=== PATIENT | female | born 1950 | race Caucasian/White ===

== ENCOUNTER → 2016-07-21 | Outpatient (CLI) | payer MEDICARE, BC, OTHER ==
[~2016-07-21] MED LIST: CALCTAB29 PO; GLIP5TAB15 PO; LOSA100T36 PO; METF500T PO; WOMETAB2 PO
[2016-07-21 07:19] LABS: ANION GAP 10 MEQ/L (8-16); BLOOD UREA NITROGEN 16 MG/DL (7-18); CALCIUM LEVEL 8.4 MG/DL (8.8-10.2); CARBON DIOXIDE LEVEL 25 MEQ/L (21-32); CHLORIDE LEVEL 105 MEQ/L (98-107); CREATININE FOR GFR 0.69 MG/DL (0.55-1.02); GLOMERULAR FILTRATION RATE > 60.0 (>45); GLUCOSE, FASTING 218 MG/DL (80-110); POTASSIUM SERUM 3.9 MEQ/L (3.5-5.1); SODIUM LEVEL 140 MEQ/L (136-145)
--- NOTE | 2016-07-21 13:41 | ECGEPIP ---
Stationary ECG Study [facility] Test Date: 2016-07-21 Pat Name: ALDEN GORMAN Department: Room: - Gender: F Restaurant Assistant: KALEY : 1950 Requested By: Ryan Velázquez Order Number: [id number] Reading MD: Simon Jeter Measurements Intervals [place] Rate: 90 P: 61 AR: 155 QRS: 6 QRSD: 98 T: 19 QT: 366 QTc: 450 Interpretive Statements Normal sinus rhythm Slow precordial R-wave progression; body habitus versus pulmonary disease. Rule out prior septal injury. No change from 12/03/15. Electronically Signed On 07-21-2016 13:40:43 EDT by Simon Jeter
== END ==
LOC: M LAB 06:03
PROVIDERS: ATTEND Ophthalmology
DX: I10 Essential (primary) hypertension (principal)

== ENCOUNTER → 2016-08-04 | Day surgery (SDC) | payer MEDICARE, BC, OTHER ==
--- NOTE | 2016-08-03 08:19 | HPE ---
DATE OF ADMISSION: 08/04/2069 ROOM: Operating room. HISTORY AND CHIEF COMPLAINT: Mrs. Muñoz is a 66-year-old lady who has had a long history of deposits of cholesterol in the medial upper eyelids and medial lower eyelids of both eyes. They have progressively gotten worse over the years. She is being admitted to have the xanthelasma excised from the medial, upper and lower eyelid of both eyes with reconstruction of the defects. PAST OCULAR HISTORY: Please see history of present illness, previous excision of basal cell carcinoma of right lower eyelid, blepharitis both eyes. Fuchs corneal endothelial dystrophy both eyes, hypertensive retinopathy both eyes, dry syndrome both eyes. PAST MEDICAL HISTORY: For preoperative medical evaluation and assessment please see the report by Dr. José Lloyd. Diabetes mellitus type 2, hypertension, hyperlipidemia. MEDICATIONS: Please see refer to the report by Dr. José Lloyd. - Prevnar - losartan - Glucotrol XL - metformin - multiple vitamins - calcium ALLERGIES: Please refer to the report by Dr. José Lloyd. MORPHINE, BENTYL. FAMILY HISTORY: Negative with respect to eye disease. SOCIAL HISTORY: Previous smoker, quit 1978. PHYSICAL EXAMINATION: On examination: Vision with current glasses: Right eye: 2024. Left eye: 2024. Intraocular pressure by Goldmann tonometry: Both eyes: 16 mmHg. Extraocular eye movements: Both eyes: Full. External examination: Right eye: Xanthelasma medial upper eyelid measuring 8 x 15 mm in size, medial right lower eyelid measuring 3 x 2 mm in size. Margin to brow skin measurement 27 mm. Left eye: Xanthelasma medial upper eyelid measuring 7 x 15 mm in size, xanthelasma medial left lower eyelid measuring 6 x 10 mm in size. Margin to brow skin measurement 29 mm. Slit lamp examination: Cornea: Both eyes: 1+ superficial punctate keratitis, Fuchs endothelial dystrophy. Anterior chamber: Both eyes: Normal. Iris: Both eyes: Normal. Lens: Both eyes: Normal. IMPRESSION 1. Xanthelasma upper eyelids and lower eyelids both eyes, increasing in size and causing irritation and heaviness of the eyelids. PLAN: I discussed the findings with Mrs. Muñoz. I recommended excision of the xanthelasma with reconstruction of the defect of both upper and lower eyelids of both eyes. I discussed with her the procedure, benefits, expected outcomes, risks and alternatives to the surgery. I mentioned that the risk of surgery includes but is not limited to surgery is not guaranteed, bleeding, infection, inflammation, scarring, lid malposition, recurrence, injury to the globe, orbit or lower eyelids, interfering with his vision and the extraocular movements of the eyes. Mrs. Muñoz elected to have the said surgery performed. I obtained an informed consent. I advised her to stop any aspirin type products and nonsteroidal anti-inflammatory medications [address] Lloyd will recommend any other preoperative and postoperative medications. DIMAS
[~2016-08-04] VITALS: Ht 162.6 cm; Wt 77.1 kg
[~2016-08-04] MED LIST changes: +ACETAMINOPHEN TAB 650MG DOSE (2X325MG) PO PRN; +BUPIVACAINE 0.75% 10 ML VIAL As Ordered ONE; +CIPROFLOXACIN 0.3% OPHTH OINTMENT As Ordered ONE; +HYALURONIDASE 200 UNITS/ML VIAL (J3470) As Ordered ONE; +LIDOCAINE 2% INJ 100 MG/5 ML SDV (FOR ANES.) As Ordered ONE; +LIDOCAINE W/EPINEPHRINE 1% 20ML VIAL As Ordered ONE; +LR 1,000 ML IV ONE; +LR 1,000 ML IV SCH; +MIDAZOLAM INJ 2 MG/2 ML VIAL (J2250) As Ordered ONE; +ONDANSETRON 4MG/2ML VIAL (J2405) As Ordered ONE; +POVIDONE-IODINE 5% OPHTH PREP SOL 30ML As Ordered ONE; +PROPOFOL 200 MG/20 ML VIAL As Ordered ONE; +SODIUM BICARBONATE 4.2% INJ 10 ML SYRINGE As Ordered ONE; +TOBRADEX OPHTH OINT 3.5 GM As Ordered ONE; +dexameTHASONE 4 MG/ML 1ML VIAL (J1100) As Ordered ONE; +dexameTHASONE 4 MG/ML 1ML VIAL (J1100) IV ONE; +fentaNYL 100 MCG/2 ML INJECTION (J3010) As Ordered ONE
[2016-08-04 09:35] VITALS: BP 145/71
--- NOTE | 2016-08-04 11:52 | RO ---
DATE OF SURGERY: 08/04/2016 ROOM: Operating room. 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 POSTOPERATIVE DIAGNOSIS: Xanthelasma of both upper and lower eyelids, both eyes. OPERATIVE PROCEDURE 1. Excision of xanthelasma of both upper and lower eyelids, both eyes. 2. Reconstruction of the both upper eyelids' defects using a rhombic flap and two-layer closure intimated wound for the lesions on the both lower eyelids. ANESTHESIA: Local anesthetic with monitored sedation. SURGEON: Ryan Velázquez MD STATISTICIAN APPLIED: DESCRIPTION OF PROCEDURE: Operative procedure details: The patient was brought into the operating room and positioned appropriately. A surgical marking pen was used to camilo incision lines around the xanthelasma lesions of all four eyelids, a rhombic flap was drawn consisting of two arms 60 degrees apart with the apex being horizontal and the base being horizontal with each arm measuring 8 mm in length for the right upper eyelid. For the left upper eyelid the rhombic flap was drawn consisting of two arms of rhombus 60 degrees apart with each arm measuring 8 mm with the apex being horizontal and the base being horizontal. After adequate sedation, local anesthetic consisting of Xylocaine 1% mixed 50/50 with Marcaine 0.75% with epinephrine and 200 units of Vitrase with 10 mL of local anesthetic, 2.75 mL was injected subcutaneously at the base of the xanthelasma lesions of the upper and lower eyelids of both eyes. The full face was prepped with Betadine and draped in the usual sterile manner. The skin incision was made with a #15 blade. Hemostasis was ensured throughout the procedure using bipolar cautery. Sharp and blunt dissection was performed to remove the xanthelasma lesions. The lesion size of the right lower eyelid consisted of 3 x 2 mm in size and the left lower eyelid 6 x 10 mm in size. The lesion of the right upper eyelid was 8 x 15 mm in size and the left upper eyelid 7 x 15 mm in size. Blunt dissection was performed at subcutaneous layer of the lower eyelids. The orbicularis layer was closed using inverted interrupted 6-0 Vicryl suture, and the skin was closed using interrupted 6-0 nylon suture. The rhombic flap was fashioned, both for the right upper eyelid and the left upper eyelid. The rhombic flap was sewn into place using inverted interrupted 6-0 Vicryl suture for the orbicularis layer, and the skin incisions were closed using interrupted 6-0 nylon suture. There were no complications during the surgery. A combination of TobraDex ophthalmic ointment mixed with Ciloxan ophthalmic ointment was applied to the incision and the sutures. A cold saline compress was placed over both eyes. The patient left the recovery room in good condition. Specimens were sent to pathology. [facility]AFFEE HOSPITALVannessa
== END | disposition home or self-care (01) ==
LOC: M SDC 05:51
PROVIDERS: ATTEND Ophthalmology
DX: H02.65 Xanthelasma of left lower eyelid (principal); H02.64 Xanthelasma of left upper eyelid; H02.62 Xanthelasma of right lower eyelid; H02.61 Xanthelasma of right upper eyelid; H01.003 Unspecified blepharitis right eye, unspecified eyelid; H01.006 Unspecified blepharitis left eye, unspecified eyelid; H18.51 Endothelial corneal dystrophy; H35.033 Hypertensive retinopathy, bilateral; H04.123 Dry eye syndrome of bilateral lacrimal glands; E11.9 Type 2 diabetes mellitus without complications; I10 Essential (primary) hypertension; E78.5 Hyperlipidemia, unspecified; Z79.899 Other long term (current) drug therapy; Z79.84 Long term (current) use of oral hypoglycemic drugs; Z88.5 Allergy status to narcotic agent; Z88.8 Allergy status to other drugs, medicaments and biological substances; Z87.891 Personal history of nicotine dependence
CPT/HCPCS: 11441; 12051; 67961; 88302; J1100; J2250; J2405; J3010; J3470

== ENCOUNTER → 2016-12-01 | Outpatient (CLI) | payer MEDICARE, BC, OTHER ==
[~2016-12-01] MED LIST changes: -ACETAMINOPHEN TAB 650MG DOSE (2X325MG) PO PRN; -BUPIVACAINE 0.75% 10 ML VIAL As Ordered ONE; -CIPROFLOXACIN 0.3% OPHTH OINTMENT As Ordered ONE; +GLIP1TAB49 PO; -GLIP5TAB15 PO; -HYALURONIDASE 200 UNITS/ML VIAL (J3470) As Ordered ONE; -LIDOCAINE 2% INJ 100 MG/5 ML SDV (FOR ANES.) As Ordered ONE; -LIDOCAINE W/EPINEPHRINE 1% 20ML VIAL As Ordered ONE; -LR 1,000 ML IV ONE; -LR 1,000 ML IV SCH; -METF500T PO; +METF500T13 PO; -MIDAZOLAM INJ 2 MG/2 ML VIAL (J2250) As Ordered ONE; -ONDANSETRON 4MG/2ML VIAL (J2405) As Ordered ONE; -POVIDONE-IODINE 5% OPHTH PREP SOL 30ML As Ordered ONE; -PROPOFOL 200 MG/20 ML VIAL As Ordered ONE; -SODIUM BICARBONATE 4.2% INJ 10 ML SYRINGE As Ordered ONE; -TOBRADEX OPHTH OINT 3.5 GM As Ordered ONE; -dexameTHASONE 4 MG/ML 1ML VIAL (J1100) As Ordered ONE; -dexameTHASONE 4 MG/ML 1ML VIAL (J1100) IV ONE; -fentaNYL 100 MCG/2 ML INJECTION (J3010) As Ordered ONE
--- NOTE | 2016-12-01 09:44 | REPMRS ---
Patient History The patient states she had a clinical breast exam in March 2016.Patient has history of breast cancer at age 54. Family history of breast cancer in sister at age 40. Digital Mammo Screening Bilat: December 01, 2016 - Exam #: [id number] Bilateral CC and MLO view(s) were taken. Technologist: Zayda Escamilla Technologist Prior study comparison: November 29, 2015, left breast digital mammo diagnostic unilateral performed at [facility]. November 22, 2015, bilateral digital mammo screening bilat performed at [facility]. November 20, 2014, bilateral digital mammo screening bilat performed at [facility]. FINDINGS: There are scattered fibroglandular densities. There has been no change in the appearance of the mammogram from the prior studies. There is a mild amount of scattered fibroglandular density which is fairly symmetric. There is no interval development of dominant mass, architectural distortion, or clustered microcalcification suggestive of malignancy. ASSESSMENT: BI-RADS/ACR category 1 mammogram. Negative. Recommendation Routine screening mammogram in 1 year (for women over age 40). This mammogram was interpreted with the aid of an FDA-approved computer-aided dectection system. Electronically Signed By: Jonnathan Patel MD 12/01/16 0951
== END ==
LOC: M RAD 08:32
PROVIDERS: ATTEND Obstetrics & Gynecology
DX: Z12.31 Encounter for screening mammogram for malignant neoplasm of breast (principal); Z80.3 Family history of malignant neoplasm of breast; Z85.3 Personal history of malignant neoplasm of breast

== ENCOUNTER 2018-11-04 05:42 | Emergency (ER) | payer MEDICARE, BC, OTHER ==
[~2018-11-04] VITALS: Ht 162.6 cm; Wt 75.9 kg
[2018-11-04 05:42] VITALS: BP 185/83
[~2018-11-04 05:42] MED LIST changes: -GLIP1TAB49 PO; +GLIP5TAB20 PO; -LOSA100T36 PO; +LOSA100T50 PO
[2018-11-04] MEDS ORDERED: CYCL5TAB PO (06:21)
[2018-11-04] MEDS ORDERED: NAPR-837 PO (06:21)
== END 2018-11-04 06:47 | disposition home or self-care (01) ==
LOC: M ED 05:42
DX: M62.830 Muscle spasm of back (principal); Z88.5 Allergy status to narcotic agent; Z88.8 Allergy status to other drugs, medicaments and biological substances; Z79.84 Long term (current) use of oral hypoglycemic drugs; Z79.899 Other long term (current) drug therapy

== ENCOUNTER → 2020-01-05 | Outpatient (CLI) | payer MEDICARE, BC, OTHER ==
[~2020-01-05] MED LIST changes: +CYCL5TAB PO; +NAPR-837 PO
[2020-01-05 08:15] LABS: ALBUMIN 3.6 GM/DL (3.2-5.2); ALT/SGPT 23 U/L (12-78); BILIRUBIN,TOTAL 0.6 MG/DL (0.2-1.0); BLOOD UREA NITROGEN 15 MG/DL (7-18); CARBON DIOXIDE LEVEL 28 MEQ/L (21-32); CHLORIDE LEVEL 105 MEQ/L (98-107); CHOLESTEROL LEVEL 107 MG/DL (<200); CHOLESTEROL RISK RATIO 3.242 (<5); CREATININE FOR GFR 0.65 MG/DL (0.55-1.30); GLOMERULAR FILTRATION RATE > 60.0 (>45); GLUCOSE, FASTING 154 MG/DL (70-100); HDL CHOLESTEROL 33 MG/DL (>40); LDL CHOLESTEROL 50 MG/DL (<100); NON-HDL-C 74 MG/DL; POTASSIUM SERUM 4.3 MEQ/L (3.5-5.1); SODIUM LEVEL 140 MEQ/L (136-145); TOTAL PROTEIN 6.5 GM/DL (6.4-8.2); TRIGLYCERIDES LEVEL 118 MG/DL (<150)
[2020-01-05 08:21] LABS: CREATININE, URINE 74.4 MG/DL; MALB URINE SIEMENS 26.4 MG/L; MAU/CREAT RATIO 35.4 MCG/MG (0.0-30.0)
[2020-01-05 10:09] LABS: HEMOGLOBIN A1c 6.5 %
== END ==
LOC: M LAB 06:05
PROVIDERS: ATTEND Internal Medicine
DX: E78.5 Hyperlipidemia, unspecified (principal); E11.9 Type 2 diabetes mellitus without complications; I10 Essential (primary) hypertension

== ENCOUNTER → 2020-07-04 | Outpatient (REF) | payer MEDICARE, OTHER, BC | LOC: M LAB REF 16:16 | PROVIDERS: ATTEND Dermatology | DX: L08.9 Local infection of the skin and subcutaneous tissue, unspecified (principal) | CPT/HCPCS: 87070; 87077; 87205; G0463 ==

== ENCOUNTER → 2021-01-15 | Outpatient (REF) | payer MEDICARE, OTHER | LOC: M LAB REF 13:44 | PROVIDERS: ATTEND Dermatology | DX: T14.90XD Injury, unspecified, subsequent encounter (principal) ==

== ENCOUNTER → 2021-11-13 | Outpatient (REF) | payer MEDICARE, OTHER ==
[~2021-11-13] MED LIST changes: +LOSA100T45 PO; -LOSA100T50 PO
== END ==
LOC: M SFHCDERM 17:28
PROVIDERS: ATTEND Dermatology
DX: L60.0 Ingrowing nail (principal)

== ENCOUNTER → 2022-01-27 | Outpatient (CLI) | payer MEDICARE, BC, OTHER ==
[2022-01-27 07:31] LABS: ALBUMIN 3.8 G/DL (3.2-5.2); ALT/SGPT 23 U/L (7.0-40); BILIRUBIN,TOTAL 0.6 MG/DL (0.3-1.2); BLOOD UREA NITROGEN 14 MG/DL (9-23); CALCIUM LEVEL 9.2 MG/DL (8.3-10.6); CARBON DIOXIDE LEVEL 27 MMOL/L (20-31); CHLORIDE LEVEL 102 MMOL/L (98-107); CHOLESTEROL LEVEL 94 MG/DL (<200); CREATININE FOR GFR 0.52 MG/DL (0.55-1.30); GLOMERULAR FILTRATION RATE > 60.0 (>39); GLUCOSE, FASTING 198 MG/DL (74-106); HDL CHOLESTEROL 24.7 MG/DL (>40); LDL CHOLESTEROL 36.7 MG/DL (<100); NON-HDL-C 69 MG/DL; POTASSIUM SERUM 4.2 MMOL/L (3.5-5.1); SODIUM LEVEL 140 MMOL/L (136-145); TOTAL PROTEIN 6.3 G/DL (5.7-8.2); TRIGLYCERIDES LEVEL 163 MG/DL (<150)
[2022-01-27 07:36] LABS: HEMOGLOBIN A1c 7.5 % (4.0-6.0)
== END ==
LOC: M LAB 06:00
PROVIDERS: ATTEND Internal Medicine
DX: E11.9 Type 2 diabetes mellitus without complications (principal); E78.5 Hyperlipidemia, unspecified; I10 Essential (primary) hypertension

== ENCOUNTER → 2022-04-14 | Outpatient (REF) | payer MEDICARE, OTHER | LOC: M PLALAB 09:11 | PROVIDERS: ATTEND Nurse Practitioner Family | DX: Z12.4 Encounter for screening for malignant neoplasm of cervix (principal) | CPT/HCPCS: 87624; G0123 ==

== ENCOUNTER → 2022-04-23 | Outpatient (CLI) | payer MEDICARE, OTHER, BC ==
[2022-04-23 06:42] LABS: BASO % 0.5 % (0.0-1.0); EOS # 0.2 10^3/uL (0.0-0.5); EOS % 1.9 % (0.0-3.0); HEMATOCRIT 45.4 % (36.0-47.0); HEMOGLOBIN 15.2 g/dl (12.0-15.5); LYMPH # 1.9 10^3/uL (1.5-5.0); LYMPH % 23.9 % (24.0-44.0); MEAN CORPUSCULAR HEMOGLOBIN 30.4 pg (27.0-33.0); MEAN CORPUSCULAR HGB CONC 33.5 g/dl (32.0-36.5); MEAN CORPUSCULAR VOLUME 90.8 fl (80.0-96.0); MONO # 1.4 10^3/uL (0.0-0.8); MONO % 18.2 % (2.0-8.0); NEUTROPHILS # 4.3 10^3/uL (1.5-8.5); NEUTROPHILS % 54.9 % (36.0-66.0); PLATELET COUNT, AUTOMATED 238 10^3/uL (150-450); WHITE BLOOD COUNT 7.9 10^3/uL (4.0-10.0)
[2022-04-23 06:57] LABS: ALBUMIN 3.7 G/DL (3.2-5.2); ALKALINE PHOSPHATASE 78 U/L (46-116); ALT/SGPT 23 U/L (7.0-40); AST/SGOT 16 U/L (<34); BILIRUBIN,TOTAL 0.6 MG/DL (0.3-1.2); BLOOD UREA NITROGEN 13 MG/DL (9-23); CALCIUM LEVEL 9.1 MG/DL (8.3-10.6); CARBON DIOXIDE LEVEL 29 MMOL/L (20-31); CHLORIDE LEVEL 107 MMOL/L (98-107); CHOLESTEROL LEVEL 92 MG/DL (<200); CHOLESTEROL RISK RATIO 3.81 (<5); CREATININE FOR GFR 0.55 MG/DL (0.55-1.30); GLOMERULAR FILTRATION RATE > 60.0 (>39); GLUCOSE, FASTING 177 MG/DL (74-106); HDL CHOLESTEROL 24.1 MG/DL (>40); LDL CHOLESTEROL 45.1 MG/DL (<100); NON-HDL-C 68 MG/DL; POTASSIUM SERUM 4.2 MMOL/L (3.5-5.1); SODIUM LEVEL 143 MMOL/L (136-145); TOTAL PROTEIN 6.3 G/DL (5.7-8.2); TRIGLYCERIDES LEVEL 114 MG/DL (<150)
[2022-04-23 08:56] LABS: HEMOGLOBIN A1c 7.2 % (4.0-6.0)
== END ==
LOC: M LAB 06:13
PROVIDERS: ATTEND Internal Medicine
DX: E11.9 Type 2 diabetes mellitus without complications (principal)

== ENCOUNTER → 2022-05-08 | Outpatient (REF) | payer MEDICARE, OTHER, BC | LOC: M SFHCDERM 14:34 | PROVIDERS: ATTEND Physician Assistant | DX: D22.5 Melanocytic nevi of trunk (principal) ==

== ENCOUNTER → 2022-07-29 | Outpatient (CLI) | payer MEDICARE, OTHER, BC ==
[~2022-07-29] MED LIST changes: -LOSA100T45 PO; +LOSA100T46 PO
[2022-07-29 07:04] LABS: BLOOD UREA NITROGEN 11 MG/DL (9-23); GLOMERULAR FILTRATION RATE > 60.0 (>39)
== END ==
LOC: M LAB 06:07
PROVIDERS: ATTEND Surgery
DX: Z01.812 Encounter for preprocedural laboratory examination (principal)

== ENCOUNTER → 2022-08-06 | Outpatient (CLI) | payer MEDICARE, BC, OTHER ==
[~2022-08-06] MED LIST changes: +AMOX875T2 PO; +GASTROGRAFIN SOLUTION 30ML As Ordered ONE; +ISOVUE-370 76% 100ML VIAL As Ordered ONE; +JANU100T PO; +PRED20TA PO
== END ==
LOC: M RAD 09:03
PROVIDERS: ATTEND Surgery
DX: K43.2 Incisional hernia without obstruction or gangrene (principal)
CPT/HCPCS: 74178; Q9963; Q9967

== ENCOUNTER → 2022-08-25 | Outpatient (CLI) | payer MEDICARE, BC, OTHER ==
[~2022-08-25] MED LIST changes: -GASTROGRAFIN SOLUTION 30ML As Ordered ONE; -ISOVUE-370 76% 100ML VIAL As Ordered ONE
[2022-08-25 07:02] LABS: ALBUMIN 3.4 G/DL (3.2-5.2); ALKALINE PHOSPHATASE 78 U/L (46-116); ALT/SGPT 21 U/L (7.0-40); AST/SGOT 11 U/L (<34); BILIRUBIN,TOTAL 0.5 MG/DL (0.3-1.2); BLOOD UREA NITROGEN 9 MG/DL (9-23); CALCIUM LEVEL 8.7 MG/DL (8.3-10.6); CARBON DIOXIDE LEVEL 29 MMOL/L (20-31); CHLORIDE LEVEL 105 MMOL/L (98-107); CHOLESTEROL LEVEL 99 MG/DL (<200); CREATININE FOR GFR 0.54 MG/DL (0.55-1.30); GLOMERULAR FILTRATION RATE > 60.0 (>39); GLUCOSE, FASTING 190 MG/DL (74-106); HDL CHOLESTEROL 24.1 MG/DL (>40); LDL CHOLESTEROL 42.3 MG/DL (<100); NON-HDL-C 74.9 MG/DL; POTASSIUM SERUM 4.1 MMOL/L (3.5-5.1); SODIUM LEVEL 140 MMOL/L (136-145); TOTAL PROTEIN 5.9 G/DL (5.7-8.2); TRIGLYCERIDES LEVEL 163 MG/DL (<150)
[2022-08-25 07:08] LABS: HEMOGLOBIN A1c 7.8 % (4.0-6.0)
== END ==
LOC: M LAB 06:06
PROVIDERS: ATTEND Internal Medicine
DX: E11.9 Type 2 diabetes mellitus without complications (principal)

== ENCOUNTER 2022-10-30 06:49 | Day surgery (SDC) | payer MEDICARE, BC, OTHER ==
[~2022-10-30] VITALS: Ht 162.6 cm; Wt 62.4 kg
[~2022-10-30 06:49] MED LIST changes: +ATOR1TAB19 PO; +DULA3PEN SC; +METF850T4 PO; +NS 1,000 ML IV ONE
[2022-10-30 08:40] VITALS: BP 138/96; TEMP 97.7; O2SAT 96
== END 2022-10-30 08:44 | disposition home or self-care (01) ==
LOC: M OPP 06:49
PROVIDERS: ATTEND Surgery
DX: Z12.11 Encounter for screening for malignant neoplasm of colon (principal); K63.5 Polyp of colon; Z87.891 Personal history of nicotine dependence; G47.33 Obstructive sleep apnea (adult) (pediatric); Z99.89 Dependence on other enabling machines and devices; Z79.02 Long term (current) use of antithrombotics/antiplatelets; Z79.84 Long term (current) use of oral hypoglycemic drugs; Z79.899 Other long term (current) drug therapy

== ENCOUNTER → 2022-12-23 | Outpatient (CLI) | payer MEDICARE, BC, OTHER ==
[~2022-12-23] MED LIST changes: -NS 1,000 ML IV ONE
[2022-12-23 07:27] LABS: ALBUMIN 3.5 G/DL (3.2-5.2); ALKALINE PHOSPHATASE 73 U/L (46-116); ALT/SGPT 12 U/L (7.0-40); AST/SGOT 8 U/L (<34); BILIRUBIN,TOTAL 0.5 MG/DL (0.3-1.2); BLOOD UREA NITROGEN 12 MG/DL (9-23); CALCIUM LEVEL 9.2 MG/DL (8.3-10.6); CARBON DIOXIDE LEVEL 30 MMOL/L (20-31); CHLORIDE LEVEL 104 MMOL/L (98-107); CHOLESTEROL LEVEL 95 MG/DL (<200); CREATININE FOR GFR 0.45 MG/DL (0.55-1.30); GLOMERULAR FILTRATION RATE > 60.0 (>39); GLUCOSE, FASTING 146 MG/DL (74-106); HDL CHOLESTEROL 23.7 MG/DL (>40); LDL CHOLESTEROL 43.5 MG/DL (<100); NON-HDL-C 71.3 MG/DL; POTASSIUM SERUM 4.4 MMOL/L (3.5-5.1); SODIUM LEVEL 141 MMOL/L (136-145); TOTAL PROTEIN 6.3 G/DL (5.7-8.2); TRIGLYCERIDES LEVEL 139 MG/DL (<150)
[2022-12-23 07:32] LABS: HEMOGLOBIN A1c 6.9 % (4.0-6.0)
== END ==
LOC: M LAB 06:06
PROVIDERS: ATTEND Internal Medicine
DX: E11.9 Type 2 diabetes mellitus without complications (principal)

== ENCOUNTER → 2022-12-24 | Outpatient (CLI) | payer MEDICARE, BC, OTHER | LOC: M WHC 06:39 | PROVIDERS: ATTEND Nurse Practitioner Family | DX: Z12.31 Encounter for screening mammogram for malignant neoplasm of breast (principal) ==

== ENCOUNTER → 2022-12-25 | Outpatient (CLI) | payer MEDICARE, BC, OTHER | LOC: M WHC 08:39 | PROVIDERS: ATTEND Nurse Practitioner Family | DX: R92.8 Other abnormal and inconclusive findings on diagnostic imaging of breast (principal) | CPT/HCPCS: 76642; 77065; G0279 ==

== ENCOUNTER → 2023-04-27 | Outpatient (CLI) | payer MEDICARE, BC ==
[2023-04-27 08:00] LABS: ALBUMIN 3.6 G/DL (3.2-5.2); ALKALINE PHOSPHATASE 69 U/L (46-116); ALT/SGPT 15 U/L (7.0-40); AST/SGOT 8 U/L (<34); BILIRUBIN,TOTAL 0.5 MG/DL (0.3-1.2); BLOOD UREA NITROGEN 16 MG/DL (9-23); CARBON DIOXIDE LEVEL 28 MMOL/L (20-31); CHLORIDE LEVEL 104 MMOL/L (98-107); CHOLESTEROL LEVEL 106 MG/DL (<200); CHOLESTEROL RISK RATIO 3.55 (<5); CREATININE FOR GFR 0.44 MG/DL (0.55-1.30); GLOMERULAR FILTRATION RATE > 60.0 (>39); GLUCOSE, FASTING 147 MG/DL (74-106); HDL CHOLESTEROL 29.8 MG/DL (>40); LDL CHOLESTEROL 53.6 MG/DL (<100); NON-HDL-C 76.2 MG/DL; POTASSIUM SERUM 4.1 MMOL/L (3.5-5.1); SODIUM LEVEL 140 MMOL/L (136-145); TOTAL PROTEIN 6.2 G/DL (5.7-8.2); TRIGLYCERIDES LEVEL 113 MG/DL (<150)
[2023-04-27 08:08] LABS: HEMOGLOBIN A1c 6.6 % (4.0-6.0)
== END ==
LOC: M LAB 06:07
PROVIDERS: ATTEND Internal Medicine
DX: E11.9 Type 2 diabetes mellitus without complications (principal)

== ENCOUNTER → 2023-07-08 | Outpatient (CLI) | payer MEDICARE, BC | LOC: M WUC 13:25 | PROVIDERS: ATTEND Internal Medicine | DX: M25.562 Pain in left knee (principal) ==

== ENCOUNTER → 2023-08-26 | Outpatient (CLI) | payer MEDICARE, BC ==
[2023-08-26 07:04] LABS: ALBUMIN 3.6 G/DL (3.2-5.2); ALKALINE PHOSPHATASE 77 U/L (46-116); ALT/SGPT 18 U/L (7.0-40); AST/SGOT < 8 U/L (<34); BILIRUBIN,TOTAL 0.6 MG/DL (0.3-1.2); BLOOD UREA NITROGEN 14 MG/DL (9-23); CALCIUM LEVEL 9.1 MG/DL (8.3-10.6); CARBON DIOXIDE LEVEL 29 MMOL/L (20-31); CHLORIDE LEVEL 105 MMOL/L (98-107); CHOLESTEROL LEVEL 87 MG/DL (<200); CHOLESTEROL RISK RATIO 3.52 (<5); GLOMERULAR FILTRATION RATE > 60.0 (>39); HDL CHOLESTEROL 24.7 MG/DL (>40); LDL CHOLESTEROL 43.3 MG/DL (<100); NON-HDL-C 62.3 MG/DL; POTASSIUM SERUM 4.5 MMOL/L (3.5-5.1); SODIUM LEVEL 140 MMOL/L (136-145); TOTAL PROTEIN 6.2 G/DL (5.7-8.2); TRIGLYCERIDES LEVEL 95 MG/DL (<150)
[2023-08-26 07:40] LABS: HEMOGLOBIN A1c 6.6 % (4.0-6.0)
[2023-08-27 14:55] LABS: GLUCOSE, FASTING 149 MG/DL (74-106)
== END ==
LOC: M LAB 06:11
PROVIDERS: ATTEND Internal Medicine
DX: E78.5 Hyperlipidemia, unspecified (principal)

== ENCOUNTER → 2023-12-28 | Outpatient (CLI) | payer MEDICARE, BC ==
[2023-12-28 07:05] LABS: HEMOGLOBIN A1c 6.6 % (4.0-6.0)
[2023-12-28 07:21] LABS: ALBUMIN 3.5 G/DL (3.2-5.2); ALKALINE PHOSPHATASE 68 U/L (35-104); ALT/SGPT 14 U/L (7.0-40); AST/SGOT < 8 U/L (<34); BILIRUBIN,TOTAL 0.5 MG/DL (0.3-1.2); BLOOD UREA NITROGEN 17 MG/DL (9-23); CALCIUM LEVEL 9.4 MG/DL (8.3-10.6); CARBON DIOXIDE LEVEL 30 MMOL/L (20-31); CHLORIDE LEVEL 109 MMOL/L (98-107); CHOLESTEROL LEVEL 107 MG/DL (<200); CHOLESTEROL RISK RATIO 3.94 (<5); CREATININE FOR GFR 0.52 MG/DL (0.55-1.30); GLOMERULAR FILTRATION RATE > 60.0 (>39); GLUCOSE, FASTING 152 MG/DL (74-106); HDL CHOLESTEROL 27.1 MG/DL (>40); LDL CHOLESTEROL 63.5 MG/DL (<100); NON-HDL-C 79.9 MG/DL; POTASSIUM SERUM 4.5 MMOL/L (3.5-5.1); SODIUM LEVEL 143 MMOL/L (136-145); TOTAL PROTEIN 6.4 G/DL (5.7-8.2); TRIGLYCERIDES LEVEL 82 MG/DL (<150)
== END ==
LOC: M LAB 06:08
PROVIDERS: ATTEND Internal Medicine
DX: E11.9 Type 2 diabetes mellitus without complications (principal)

== ENCOUNTER → 2023-12-29 | Outpatient (CLI) | payer MEDICARE, BC | LOC: M WHC 08:04 | PROVIDERS: ATTEND Nurse Practitioner Family | DX: Z12.31 Encounter for screening mammogram for malignant neoplasm of breast (principal); R92.323 Mammographic fibroglandular density, bilateral breasts ==

== ENCOUNTER → 2024-04-27 | Outpatient (CLI) | payer MEDICARE, BC ==
[~2024-04-27] MED LIST changes: -CYCL5TAB PO; +CYCL5TAB4 PO
[2024-04-27 07:17] LABS: ALBUMIN 3.5 G/DL (3.2-5.2); ALKALINE PHOSPHATASE 68 U/L (35-104); ALT/SGPT 18 U/L (7.0-40); AST/SGOT 9 U/L (<34); BILIRUBIN,TOTAL 0.5 MG/DL (0.3-1.2); BLOOD UREA NITROGEN 12 MG/DL (9-23); CALCIUM LEVEL 8.9 MG/DL (8.3-10.6); CARBON DIOXIDE LEVEL 27 MMOL/L (20-31); CHLORIDE LEVEL 106 MMOL/L (98-107); CHOLESTEROL LEVEL 109 MG/DL (<200); CREATININE FOR GFR 0.48 MG/DL (0.55-1.30); GLOMERULAR FILTRATION RATE > 60.0 (>39); HDL CHOLESTEROL 27.9 MG/DL (>40); LDL CHOLESTEROL 56.1 MG/DL (<100); NON-HDL-C 81.1 MG/DL; POTASSIUM SERUM 4.3 MMOL/L (3.5-5.1); SODIUM LEVEL 143 MMOL/L (136-145); TOTAL PROTEIN 6.4 G/DL (5.7-8.2); TRIGLYCERIDES LEVEL 125 MG/DL (<150)
[2024-04-27 07:46] LABS: HEMOGLOBIN A1c 7.1 % (4.0-6.0)
[2024-04-28 07:15] LABS: GLUCOSE, FASTING 166 MG/DL (74-106)
== END ==
LOC: M LAB 06:14
PROVIDERS: ATTEND Internal Medicine
DX: E11.9 Type 2 diabetes mellitus without complications (principal); E78.5 Hyperlipidemia, unspecified; I10 Essential (primary) hypertension

== ENCOUNTER → 2024-09-07 | Outpatient (CLI) | payer MEDICARE, BC ==
[~2024-09-07] MED LIST changes: +GLIP-318 PO; -GLIP5TAB20 PO
[2024-09-07 07:41] LABS: ALT/SGPT 18 U/L (7.0-40); AST/SGOT 14 U/L (<34); CALCIUM LEVEL 9.7 MG/DL (8.3-10.6); CARBON DIOXIDE LEVEL 29 MMOL/L (20-31); CHLORIDE LEVEL 104 MMOL/L (98-107); CHOLESTEROL LEVEL 97 MG/DL (<200); CHOLESTEROL RISK RATIO 3.84 (<5); CREATININE FOR GFR 0.50 MG/DL (0.55-1.30); GLOMERULAR FILTRATION RATE > 90.0 (>39); LDL CHOLESTEROL 45.8 MG/DL (<100); NON-HDL-C 71.8 MG/DL; POTASSIUM SERUM 4.4 MMOL/L (3.5-5.1); SODIUM LEVEL 145 MMOL/L (136-145); TRIGLYCERIDES LEVEL 130 MG/DL (<150)
[2024-09-07 08:44] LABS: ESTIMATED AVERAGE GLUCOSE 157.0 MG/DL (60-110)
== END ==
LOC: M LAB 06:23
PROVIDERS: ATTEND Internal Medicine
DX: E11.9 Type 2 diabetes mellitus without complications (principal); E78.5 Hyperlipidemia, unspecified; I10 Essential (primary) hypertension

== ENCOUNTER → 2025-01-10 | Outpatient (CLI) | payer MEDICARE, BC | LOC: M WHC 09:00 | PROVIDERS: ATTEND Nurse Practitioner Family | DX: Z12.31 Encounter for screening mammogram for malignant neoplasm of breast (principal); R92.323 Mammographic fibroglandular density, bilateral breasts ==

== ENCOUNTER → 2025-01-17 | Outpatient (CLI) | payer MEDICARE, BC | LOC: M WHC 08:27 | PROVIDERS: ATTEND Nurse Practitioner Family | DX: Z13.820 Encounter for screening for osteoporosis (principal); M85.88 Other specified disorders of bone density and structure, other site ==